=== PATIENT | female | born 2005 | race American Indian/Alaskan Native ===

== ENCOUNTER 2023-08-24 09:48 | Emergency (ER) | payer OTHER, SELFPAY ==
[2023-08-24 11:29] VITALS: BP 146/82; PULSE 61; RESP 16; TEMP 36.6; O2SAT 100; BMI 20.8
--- NOTE | 2023-08-24 14:13 | ED.GENADULT ---
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 States it happened at 8:30 this morning. She put neosporin on it, and it was cleaned and wrapped in triage. Per patient tetanus UTD. Denies tingling, numbness, headache, nausea, vomiting, dizziness, cp, sob. Related Data Previous Rx's ?Medication ?Instructions ?Recorded bacitracin 500 unit/gram topical 1 appl topical TID #14 grams 08/24/23 ointment cephalexin 500 mg tablet 500 mg PO Q6H 10 days #40 tabs 08/24/23 Allergies Allergy/AdvReac Type Severity Reaction Status Date / Time peach Allergy Unknown Verified 08/24/23 11:30 Review of Systems Review of Systems: Yes all other systems are reviewed and are negative PMFSH Past Medical History Attestation statement: The following information was validated with the patient. Source: old records reviewed and nursing notes reviewed Social History Social History Advance Directives: No Physical Exam ED Vital Signs: Vital Signs - 24 hr 08/24/23 11:29 08/24/23 14:15 08/24/23 15:37 Temperature 97.9 F 98.1 F 98 F Pulse Rate 61 60 59 Respiratory Rate 16 20 16 Blood Pressure 146/82 H 147/88 H 122/82 Pulse Oximetry 100 100 100 Oxygen Delivery Method Room Air Room Air Room Air BMI result Body Mass Index 20.8 vss Appearance: Alert.? Oriented X3.? No acute distress.? Head: Normocephalic, atraumatic, no step-offs or deformities Eyes: Pupils equal, round and reactive to light.? Neck: Normal inspection.? Neck supple.? CVS: Normal heart rate and rhythm.? Pulses normal.?2+ radial pulses b/l. Cap refill < 2 seconds. Respiratory: No respiratory distress.? Skin: Skin warm and dry.? Normal skin color.? Normal skin turgor.? + avulsion to right distal thumb and small part of nail amd nail bed,not bleeding. Normal sensation distally. 2+ radial pulses. Cap refill less than 2 seconds to bilateral upper extremities. Extremities: No lower extremity edema.? No calf ttp. 5/5 strength to bilateral upper and lower extremities Neuro: Oriented X 3.? No motor deficit.? No sensory deficit. 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 PE + avulsion to right distal thumb and small part of nail amd nail bed,not bleeding. Normal sensation distally. 2+ radial pulses. Cap refill less than 2 seconds to bilateral upper extremities. History and physical exam concerning for avulsion with damage to nail and slight damage to the nail bed however nothing major. No signs of neurovascular compromise, acute threat to limb. Unlikely fracture dislocation. Bleeding well controlled unlikely acute blood loss anemia Plan area will be cleaned, bacitracin will be applied. Patient will be discharged with antibiotics as this was likely a dirty cut. Patient is up-to-date on her tetanus shot. Educated patient on diagnosis and treatment plan, answered all question, patient verbalizes understanding. At this time patient will be discharged home, advised to return with new or worsening symptoms. Educated on worrisome signs and symptoms and when to return. At this time I feel comfortable discharge home. Differential Diagnosis Differential Diagnoses: The differential diagnosis associated with the presentation includes Plan area will be cleaned, bacitracin will be applied. Patient will be discharged with antibiotics as this was likely a dirty cut. Patient is up-to-date on her tetanus shot. Admission/Observation Consideration of admission/observation: Escalation of care including admission/observation considered No indication Tests considered The following testing was considered but not selected: Full range of motion to all fingers painless, unlikely fracture dislocation. No step-offs or deformities on exam. No indication for imaging. Critical Care Time Critical Care Time Critical Care Time: No Discharge Plan Discharge Clinical Impression: Avulsion of skin, Avulsion of nail of right thumb Patient Disposition: Home, Self-Care Additional Instructions: Take your medications as prescribed. If you were prescribed antibiotics today, it is important that you take your medication to their entirety, do not skip any doses, do not finish them early. Follow-up with your primary care provider this week. Return to the emergency department with new or worsening symptoms. Such as fevers, chills, chest pain, shortness of breath, nausea, vomiting, dizziness, headache, vision changes, lethargy In case of emergency call 911 Keep the dressing on for 24 hours then remove the dressing. If you need to use water to remove it that is okay. I will send you topical antibiotic. Please keep this wound covered for the 1st 2-3 days. Prescriptions: New cephalexin 500 mg tablet 500 mg PO Q6H 10 Days Qty: 40 0RF bacitracin 500 unit/gram ointment 1 appl topical TID Qty: 14 0RF Referrals: Physician,Unknown J [Primary Care Provider] - 2 days Stand Alone Forms: Work/School Release Interventions: ED Discharge Assessment Last Done: 08/24/23 15:37 Discharge Date/Time: 08/24/23 15:38 Print Language: Telugu
[2023-08-24 14:15] VITALS: BP 147/88; PULSE 60; RESP 20; TEMP 36.7; O2SAT 100
[2023-08-24] MEDS: Bacitracin Oint 0.9 GM PACKET 1 APPL TOPICAL (14:56)
--- NOTE | 2023-08-24 14:56 | PC.NURSE ---
wound cleaned, b acitracin applied to R thumb, non adherant dressing applied per provider request
[2023-08-24 15:37] VITALS: BP 122/82; PULSE 59; RESP 16; TEMP 36.6; O2SAT 100
== END 2023-08-24 15:38 | disposition home or self-care (01) ==
PROVIDERS: Emergency Provider Emergency Medicine
DX: S61.111A Laceration without foreign body of right thumb with damage to nail, initial encounter (principal); W31.82XA Contact with other commercial machinery, initial encounter; Y93.89 Activity, other specified; Y92.511 Restaurant or cafe as the place of occurrence of the external cause; Y99.0 Civilian activity done for income or pay
CPT/HCPCS: 99283

== ENCOUNTER 2024-04-02 10:29 | Emergency (ER) | payer SELFPAY ==
--- NOTE | ~2024-04-02 | XR_ITS ---
EXAMINATION: XR CHEST CLINICAL INFORMATION: cough COMPARISON: None available. TECHNIQUE: 2 views of the chest were obtained. FINDINGS: No significant abnormality is noted involving the heart, lungs, mediastinum, bony thorax or soft tissues. XR/XR chest 2V IMPRESSION: No acute disease Electronically signed by: Jaron Shabazz MD 04/02/2024 12:57 PM [facility] [place]
[2024-04-02 10:48] VITALS: BP 142/92; PULSE 73; RESP 18; TEMP 36.8; O2SAT 98; BMI 21.6
[2024-04-02 11:47] LABS: Influenza A PCR NEGATIVE (Negative); Influenza B PCR NEGATIVE (Negative); Resp Syncy Virus RNA Qual PCR POSITIVE (Negative); SARS COV2 PCR INHOUSE NEGATIVE (Negative)
--- NOTE | 2024-04-02 11:58 | ED.URI ---
HPI - URI/Sore Throat General Chief Complaint: Upper Respiratory Symptoms Stated Complaint: Resp infection, sob headache Time Seen by Provider: 04/02/24 11:16 Source: patient Mode of arrival: ambulatory Limitations: no limitations History of Present Illness ED Provider: SUBHASH DELGADO PA-C HPI Narrative: 18 year old female presents to the ED today for evaluation of dry cough, congestion, headaches x5 days. No sputum production. Reports everyone in her home is ill with similar symptoms. Vaccinations are up-to-date. No history of asthma. No recent travel or long car rides. Denies fever, chills, sore throat, ear pain, sinus pain, chest pain, shortness of breath, wheezing, rashes. Related Data Previous Rx's ?Medication ?Instructions ?Recorded bacitracin 500 unit/gram topical 1 appl topical TID #14 grams 08/24/23 ointment cephalexin 500 mg tablet 500 mg PO Q6H 10 days #40 tabs 08/24/23 benzonatate 100 mg capsule 100 mg PO BID PRN cough #14 caps 04/02/24 Allergies Allergy/AdvReac Type Severity Reaction Status Date / Time peach Allergy Unknown Verified 04/02/24 10:51 Review of Systems Review of Systems: Constitutional: No fever, chills, fatigue, night sweats, weight changes ENT/Mouth: No ear pain, hearing loss,sinus pain, rhinorrhea, sore throat, +congestion Eyes: No eye pain, swelling, redness, vision changes, discharge Cardio: No chest pain, palpitations, DELACRUZ, orthopnea, peripheral edema Pulm: No SOB, sputum, wheezing, dyspnea, hemoptysis, +cough GI: No nausea, vomiting, hematemesis, abdominal pain, diarrhea, constipation, hematochezia, melena : No irregular bleeding, dysuria, frequency, urgency, hesitancy, hematuria, flank pain, urinary flow changes, urinary incontinence or retention MSK: No back pain, neck pain, joint pain, myalgias Skin: No lesions, rashes Neuro: No weakness, numbness, paresthesias, LOC, dizziness, +headache Psych: No anxiety/panic, depression, SI/HI, AH/VH All other systems reviewed and are negative. [facility] Past Medical History Attestation statement: The following information was validated with the patient. Source: old records reviewed and nursing notes reviewed Social History Social History Advance Directives: No Advance Directives Information Provided: Yes Do you have a plan to hurt others: No Plan Physical Exam Vital Signs: Vital Signs: Last Vital Signs Temp 98.3 F 04/02/24 10:48 Pulse 73 04/02/24 10:48 Resp 18 04/02/24 10:48 BP 142/92 H 04/02/24 10:48 Pulse Ox 98 04/02/24 10:48 O2 Del Method Room Air 04/02/24 10:48 BMI result Body Mass Index 21.6 Hypertensive, afebrile General: Well appearing, in no acute distress. Skin: Warm, dry, intact. No rashes or lesions. Head: Normocephalic, atraumatic. EENT: Hearing is intact b/l. Conjunctiva clear. PERRLA. EOM intact. Moist mucous membranes.? Neck: Supple without LAD Cardiac: Chest wall symmetric. RRR Lungs: broncospastic cough. no tripoding. Normal respiratory effort without accessory muscle use. CTA bilaterally. No rales, rhonchi, or wheezes.? Ext: Upper and lower extremities atraumatic, without tenderness, deformity, swelling or erythema. no calf tenderness or edema. Neuro: AOx3. Normal speech. Ambulating with steady gait. Psych: Appropriate mood and affect. Responds appropriately to questions. Course Course Course Narrative: 1307 -- Chest x-ray does not exhibit consolidation or infiltrate. No bronchial wall thickening. She tested negative for COVID, flu. She did test positive for RSV. Educated on symptomatic treatment. Kayleigh sent to pharmacy for cough. Patient has remained stable throughout ED visit today. Discussed worrisome signs and symptoms and when to return to the ED. All questions answered at this time. Patient is agreeable with disposition and stable for discharge. Medications Administered Discontinued Medications Generic Name Dose Route Start Last Admin Trade Name Freq PRN Reason Stop Dose Admin Benzonatate 100 mg 04/02/24 12:02 04/02/24 12:18 Benzonatate 100 Mg Capsule PO 04/02/24 12:03 100 mg ONCE ONE Administration Medical Decision Making Medical Decision Making MDM Narrative: 18 year old female presents to the ED today for evaluation of dry cough, congestion, headaches x5 days. Patient is slightly hypertensive, afebrile. Not hypoxic. She is nontoxic-appearing and in no acute distress. Lying comfortably on the exam bed. On exam, broncospastic cough. no tripoding. Normal respiratory effort without accessory muscle use. CTA bilaterally. No rales, rhonchi, or wheezes.? No rashes. No pitting edema. No calf tenderness bilaterally. Differential diagnosis includes viral syndrome, bronchitis, pneumonia. Unlikely PE. Plan for viral serology, chest x-ray, re-evaluation. Differential Diagnosis Differential Diagnoses: The differential diagnosis associated with the presentation includes As above Admission/Observation Not indicated Lab Data MDM Lab Attestation statement: I reviewed the patient's lab results. as above. Labs: Lab Results 04/02/24 Range/Units 11:04 Influenza Type A (PCR) NEGATIVE (Negative) Influenza Type B (PCR) NEGATIVE (Negative) RSV RNA Qual (PCR) POSITIVE A (Negative) SARS-CoV-2 RNA (RT-PCR) NEGATIVE (Negative) Independent Interpretation I performed an independent interpretation of an: Plain X-Ray Interpretation: Chest x-ray without consolidation or infiltrate Radiology Impression Discussion of test interpretation with radiology: I have reviewed the radiologist's reading. Radiologist Impression: EXAMINATION: XR CHEST CLINICAL INFORMATION: cough COMPARISON: None available. TECHNIQUE: 2 views of the chest were obtained. FINDINGS: No significant abnormality is noted involving the heart, lungs, mediastinum, bony thorax or soft tissues. XR/XR chest 2V IMPRESSION: No acute disease Electronically signed by: Jaron Shabazz MD 04/02/2024 12:57 PM [facility] [place] Record Review External record reviewed: Inpatient record Prescription Management I considered prescription management with: Other (Tessalon) Social Determinants Patient?s care significantly limited by Social Determinants of Health including: Other Social Determinant of Health Critical Care Time Critical Care Time Critical Care Time: No Discharge Plan Discharge Clinical Impression: Respiratory syncytial virus (RSV) Patient Disposition: Home, Self-Care Instructions: Respiratory Syncytial Virus (ED) Additional Instructions: Today you tested positive for RSV (respiratory syncytial virus). Treatment for this is symptomatic and does not require treatment with antibiotics. Take Ibuprofen or Tylenol as needed for fevers or body aches.? Kayleigh Hairston have been sent to your pharmacy for your cough. Practice social distancing and good hand hygiene. Drink plenty of fluids. Follow-up with your primary care provider this week. Return to the emergency department with new or worsening symptoms. In case of emergency call 911 You can purchase a pulse oximeter from your local pharmacy or grocery store, and monitor your oxygen saturation if it goes below 94% you should return to the emergency department for further evaluation. Prescriptions: New benzonatate 100 mg capsule 100 mg PO BID PRN (Reason: cough) Qty: 14 0RF No Action cephalexin 500 mg tablet 500 mg PO Q6H 10 Days Qty: 40 0RF bacitracin 500 unit/gram ointment 1 appl topical TID Qty: 14 0RF Referrals: [facility] [place] Family Medicine [Provider Group] [facility] [place] Primary CareKayli [Provider Group] [facility] [place] Primary CareKaron [Provider Group] Print Language: Sinhala
[2024-04-02] MEDS: Benzonatate 100 MG CAPSULE PO (12:18)
[2024-04-02 13:30] VITALS: BP 142/92; PULSE 73; RESP 18; TEMP 36.8; O2SAT 98
== END 2024-04-02 13:31 | disposition home or self-care (01) ==
PROVIDERS: Emergency Provider Emergency Medicine
DX: J22 Unspecified acute lower respiratory infection (principal); B97.4 Respiratory syncytial virus as the cause of diseases classified elsewhere; R06.02 Shortness of breath; R51.9 Headache, unspecified; R05.9 Cough, unspecified; Z79.899 Other long term (current) drug therapy; Z03.818 Encounter for observation for suspected exposure to other biological agents ruled out
CPT/HCPCS: 0241U; 71046; 99282; 99283